=== PATIENT | female | born 1965 | race Caucasian/White ===

== ENCOUNTER 2016-07-30 11:19 | Emergency (ER) | payer BC, MEDICARE ==
[~2016-07-30 11:19] MED LIST: LISINOPRIL10 MG PO
== END 2016-07-30 12:08 | disposition home or self-care (01) ==
LOC: ER1 11:19
DX: S39.012A Strain of muscle, fascia and tendon of lower back, initial encounter (principal); I10 Essential (primary) hypertension; E78.5 Hyperlipidemia, unspecified; F41.9 Anxiety disorder, unspecified; F32.9 Major depressive disorder, single episode, unspecified; Z90.710 Acquired absence of both cervix and uterus; Z88.0 Allergy status to penicillin; Z88.2 Allergy status to sulfonamides; X50.9XXA Other and unspecified overexertion or strenuous movements or postures, initial encounter
CPT/HCPCS: 96372; 99283; J1100; J1885

== ENCOUNTER 2020-08-09 11:34 | Emergency (ER) | payer BC, MEDICARE ==
[2020-08-09 12:34] LABS: HEMOGLOBIN 13.6 gm/dl (12.3-15.3); RED BLOOD COUNT 4.56 M/UL (4.00-5.10); WHITE BLOOD COUNT 4.9 K/UL (4.5-11.0)
[2020-08-09 12:55] LABS: BUN/CREATININE RATIO 11 (0-10)
== END 2020-08-09 17:30 | disposition home or self-care (01) ==
LOC: ER1 11:34
PROVIDERS: Family Medicine
DX: R07.9 Chest pain, unspecified (principal); M79.601 Pain in right arm; I10 Essential (primary) hypertension; Z88.0 Allergy status to penicillin; Z88.2 Allergy status to sulfonamides; Z79.899 Other long term (current) drug therapy
CPT/HCPCS: 71045; 80053; 82550; 82553; 83874; 84484; 85025; 93005; 96374; 99285; J1885